=== PATIENT | male | born 1945 | race Caucasian/White ===

== ENCOUNTER 2020-12-11 11:10 | Outpatient (CLI) | payer MEDICARE, OTHER, SELFPAY ==
--- NOTE | 2020-12-11 11:18 | US_ITS ---
WS: [id number] TESTICULAR ULTRASOUND HISTORY: ELEVATED TESTOSTERONE LEVEL COMPARISON: None available. TECHNIQUE: Real-time and color Doppler imaging or utilized to perform a testicular ultrasound. Right testicle: 4.1 cm x 2.2 cm x 1.7 cm. Normal size and echogenicity. No mass or torsion. Normal color Doppler is present throughout. Systolic and diastolic velocities are both present. Small simple hydrocele. Right epididymis: Normal epididymis with no increased vascularity. Left testicle: 3.6 cm x 2.1 cm x 1.5 cm. Normal size and echogenicity. No mass or torsion. Normal color Doppler is present throughout. Systolic and diastolic velocities are both present. No significant hydrocele. Left epididymis: Normal epididymis. Small varicocele on the LEFT. US/US scrotum [id number] IMPRESSION: 1. No testicular mass or torsion. 2. Small simple RIGHT hydrocele. 3. Small varicocele on the LEFT.
== END 2020-12-11 11:11 | disposition home or self-care (01) ==
LOC: RAD 11:15
PROVIDERS: PCP Family Medicine; Visit Provider Family Medicine
DX: R79.89 Other specified abnormal findings of blood chemistry (principal); N43.3 Hydrocele, unspecified; I86.1 Scrotal varices
CPT/HCPCS: 76870

== ENCOUNTER → 2021-02-26 10:11 | Outpatient (BNVA) | payer MEDICARE, OTHER, SELFPAY | PROVIDERS: PCP Family Medicine; Referring Provider Family Medicine; Visit Provider Internal Medicine | DX: R79.89 Other specified abnormal findings of blood chemistry (principal); E23.7 Disorder of pituitary gland, unspecified; F03.90 Unspecified dementia, unspecified severity, without behavioral disturbance, psychotic disturbance, mood disturbance, and anxiety; D75.1 Secondary polycythemia | CPT/HCPCS: 99205 ==

== ENCOUNTER 2021-02-27 08:53 | Outpatient (CLI) | payer MEDICARE, OTHER, SELFPAY ==
[2021-02-27 10:19] LABS: Follicle Stimulating Hormone 5.7 mIU/mL (1.5-12.4); Prolactin 10.56 ng/mL (4.0-15.2); Prostate Specific Antigen Scr 0.53 ng/mL (0-4)
[2021-02-27 11:11] LABS: Testosterone Total 203.9 ng/dL (193-740)
[2021-03-02 16:03] LABS: Dehydroepiandrosterone Sulfate 62 mcg/dL (5-253)
[2021-03-02 23:37] LABS: Testosterone, Free 41.5 pg/mL (6.0-73.0)
== END 2021-02-27 08:54 | disposition home or self-care (01) ==
LOC: LAB 09:01
PROVIDERS: PCP Family Medicine; Visit Provider Internal Medicine
DX: R79.89 Other specified abnormal findings of blood chemistry (principal); E23.7 Disorder of pituitary gland, unspecified
CPT/HCPCS: 82627; 83001; 83002; 84146; 84402; 84403; G0103

== ENCOUNTER 2021-03-13 10:37 | Outpatient (CLI) | payer MEDICARE, OTHER, SELFPAY ==
[2021-03-13 12:10] LABS: 25 Hydroxy Vitamin D 26 ng/mL (30-100); Vitamin B12 686 pg/mL (232-1245)
[2021-03-13 12:14] LABS: Folate Level 6.5 ng/mL (4.5-32.2)
[2021-03-13 12:53] LABS: HIV 1 & 2 Antibody Non-Reactive (Non-Reactiv); HIV 1 & 2 Antigen Non-Reactive (Non-Reactiv)
== END 2021-03-13 10:38 | disposition home or self-care (01) ==
PROVIDERS: PCP Family Medicine; Visit Provider Internal Medicine
DX: F03.90 Unspecified dementia, unspecified severity, without behavioral disturbance, psychotic disturbance, mood disturbance, and anxiety (principal); F32.A Depression, unspecified; R79.89 Other specified abnormal findings of blood chemistry; E23.7 Disorder of pituitary gland, unspecified; D75.1 Secondary polycythemia; E55.9 Vitamin D deficiency, unspecified
CPT/HCPCS: 36415; 82306; 82607; 82746; 86592; 87806; 99214

== ENCOUNTER 2021-04-09 07:48 | Outpatient (CLI) | payer MEDICARE, OTHER, SELFPAY ==
--- NOTE | 2021-04-09 08:00 | MR_ITS ---
WS: [id number] MRI HEAD WITH CONTRAST TECHNIQUE: Sagittal T1, T2 axial, T2 axial FLAIR, axial susceptibility weighted imaging, axial diffus ion weighted images, and coronal T2 images were obtained. Pre and post-T1 axial and post T1 coronal i mages. ADC and FSPGR images. CLINICAL INFORMATION: F03.90 - Unspecified dementia without behavioral disturbance COMPARISON: None. FINDINGS: No evidence of restricted diffusion to suggest acute ischemia. Ventricular system and basal cisterns are patent. Mild small vessel changes. Moderate parenchymal volume loss. Normal posterior fossa. Norm al vascular flow voids at the skull base. No extra axial fluid collections. No evidence of mass or ma ss effect. Paranasal sinuses and mastoid air cells are well aerated. Small amount mucosal thickening in the ethmoid air cells. No hemosiderin on susceptibly weighted images. Normal optic chiasm and pituitary infundibulum. Moderate symmetric atrophy temporal lobes and hippoca mpal formations. No abnormal intraparenchymal enhancement. Normal visualized dural venous sinuses. No rmal posterior nasopharynx. MR/MR head wo/w con [id number] IMPRESSION: 1. No evidence of restricted diffusion to suggest acute ischemia. 2. Mild small vessel changes with moderate parenchymal volume loss. Atrophy mo re prominent in the parietal lobes. 3. Moderate symmetric atrophy temporal lobes and hippocampal formations. 4. No abnormal intracranial enhancement. 5. No hemosiderin on the susceptibility weighted images. 6. No other significant findings.
== END 2021-04-09 07:49 | disposition home or self-care (01) ==
LOC: RADSHAW 07:52
PROVIDERS: PCP Family Medicine; Visit Provider Internal Medicine
DX: F03.90 Unspecified dementia, unspecified severity, without behavioral disturbance, psychotic disturbance, mood disturbance, and anxiety (principal); G31.9 Degenerative disease of nervous system, unspecified
CPT/HCPCS: 70553; A9579

== ENCOUNTER → 2021-07-06 08:26 | Outpatient (BNVA) | payer MEDICARE, OTHER, SELFPAY | PROVIDERS: PCP Family Medicine; Visit Provider Internal Medicine | DX: F03.90 Unspecified dementia, unspecified severity, without behavioral disturbance, psychotic disturbance, mood disturbance, and anxiety (principal); E55.9 Vitamin D deficiency, unspecified; D75.1 Secondary polycythemia; G47.33 Obstructive sleep apnea (adult) (pediatric); E23.7 Disorder of pituitary gland, unspecified; R79.89 Other specified abnormal findings of blood chemistry; Z87.891 Personal history of nicotine dependence | CPT/HCPCS: 99214 ==

== ENCOUNTER 2021-07-07 09:57 | Outpatient (CLI) | payer MEDICARE, SELFPAY ==
[2021-07-07 11:05] LABS: 25 Hydroxy Vitamin D 27 ng/mL (30-100); Thyroid Stimulating Hormone 2.67 uIU/mL (0.27-4.20)
[2021-07-07 12:25] LABS: Free T4 Free Thyroxine 1.17 ng/dL (0.82-1.77)
== END 2021-07-07 09:58 | disposition home or self-care (01) ==
PROVIDERS: PCP Family Medicine; Visit Provider Internal Medicine
DX: D75.1 Secondary polycythemia (principal); E23.7 Disorder of pituitary gland, unspecified; E55.9 Vitamin D deficiency, unspecified; F03.90 Unspecified dementia, unspecified severity, without behavioral disturbance, psychotic disturbance, mood disturbance, and anxiety; G47.33 Obstructive sleep apnea (adult) (pediatric); R79.89 Other specified abnormal findings of blood chemistry
CPT/HCPCS: 36415; 82306; 84439; 84443

== ENCOUNTER → 2021-07-24 11:12 | Outpatient (BNVA) | payer MEDICARE, SELFPAY | PROVIDERS: PCP Family Medicine; Visit Provider Social Worker | DX: F33.2 Major depressive disorder, recurrent severe without psychotic features (principal) | CPT/HCPCS: 90834 ==

== ENCOUNTER → 2021-12-22 07:47 | Outpatient (BNVA) | payer MEDICARE, SELFPAY | PROVIDERS: PCP Family Medicine; Visit Provider Family Medicine | DX: E03.9 Hypothyroidism, unspecified (principal); D75.1 Secondary polycythemia; G89.29 Other chronic pain; M54.9 Dorsalgia, unspecified; R53.83 Other fatigue | CPT/HCPCS: 80053; 80061; 82607; 84443; 84550; 85025; 85651; 86140; 86618; 86666; 86757 ==

== ENCOUNTER 2022-03-08 06:47 | Outpatient (CLI) | payer MEDICARE, SELFPAY ==
--- NOTE | 2022-03-08 | ECG_ITS ---
[facility] Test Date: 2022-03-08 Pat Name: Troy Borja Department: Room: Gender: Male Supervisor Type Photography: : 1945 Requested By: Osman Stewart Order Number: [id number] Anisha MD: Mariama Petit M.D. Interpretive Statements NAME OF STUDY: EXERCISE SESTAMIBI STRESS TEST INDICATION: Dyspnea Baseline blood pressure of 137/96 mm Hg, heart rate of 77 beats per minute and oxygen saturation of 91%. EKG showed sinus rhythm with extreme right axis deviation with poor anterior R wave progression. The patient exercised for 5-minute 59 seconds on a standard Geovany protocol. Patient attained a maximum heart rate of 161 beats per minute(113% of the maximum predicted heart rate) with a blood pressure at the peak exercise of 171/77 mm Hg and oxygen saturation of 91%. The EKG at the peak exercise revealed sinus tachycardia with no significant ST-T wave changes. Patient did not have any chest pain or any significant arrhythmis with the exercise. During the recovery phase, there were no new changes. Isolated PVCs noted in recovery. Blood pressure at the end of the recovery phase was 148/89 mm Hg with a heart rate of 97 beats per minute and oxygen saturation of 94%. CONCLUSION: 1. Normal EKG response to treadmill exercise. 2. No exercise-induced chest pain or cardiac arrhythmia. 3. Good exercise tolerance, attained a maximum of 7 METs. 4. Baseline hypertension with normal response to exercise. 5. Perfusion scan will be documented separately. Electronically Signed On 03-08-2022 17:07:01 CDT by Mariama Petit M.D. [id number]
[2022-03-08 06:55] VITALS: BMI 30.5
--- NOTE | 2022-03-08 07:54 | NMCV_ITS ---
NM gordon perf SPECT r/s* [id number] Troy Borja Age: 77 Gender: M : 1945 Exam Date: 03/08/2022 07:58 Ordering Phys: Osman Reeves MD Technologist: DYLON Guadarrama Exam Location: [facility] Indications: CHEST PAIN STRESS TEST Please [facility] IMAGE PROTOCOL Rest/Stress 1 Exercise Day Radiopharmaceutical Dose (mCi) Administration Site Administered by Rest: Tc-99m 10.9 IV DYLON Deng Sestamibi Stress:Tc-99m 32.9 IV DYLON Deng Sestamibi Rest: 08-Mar-2022 60 Discovery 630 Stress: 08-Mar-2022 30 Discovery 630 Radiopharmaceutical was injected at 95 % maximum heart rate. Images obtained in supine and prone position. SPECT RESULTS Technical Quality: Excellent Raw Data Analysis: Normal Image Corrections: No attenuation or motion correction applied Summed Stress Score: 0 Summed Rest Score: 5 Summed Difference Score: 0 PERFUSION FINDINGS Small size perfusion abnormality of mild severity of apical septal, apical inferior and apical wall on rest images with improved tracer uptake on stress images. This is suggestive of attenuation artifact. FUNCTIONAL RESULTS (calculated via Gated SPECT) Stress Image LV EF (%): 66 Stress EDV (mL):74 TID: 0.7 Stress ESV (mL):25 FUNCTIONAL FINDINGS: The left ventricle is normal in size. Transient Ischemia Dilatation of 0.7. There is normal left ventricular systolic function. The left ventricular ejection fraction is normal with a value of 66%. There is normal left ventricular wall thickening. Normal end-diastolic and end-systolic volumes. IMPRESSIONS 1. Myocardial perfusion imaging is normal. Attenuation artifact noted in apical inferior and apical septal manley. 2. Overall left ventricular systolic function is normal without regional wall motion abnormalities, LVEF=66%. 3. EKG portion of the study will be reported separately. Mariama Petit MD (Electronically Signed) Final Date: 08 March 2022 16:55 S
[2022-03-08 08:55] VITALS: BP 148/89; PULSE 96
== END 2022-03-08 06:48 | disposition home or self-care (01) ==
PROVIDERS: PCP Family Medicine; Visit Provider Family Medicine
DX: R06.00 Dyspnea, unspecified (principal); R07.9 Chest pain, unspecified; I10 Essential (primary) hypertension
CPT/HCPCS: 78452; 93017; A9500

== ENCOUNTER → 2022-03-10 10:56 | Outpatient (BNVA) | payer MEDICARE, SELFPAY | PROVIDERS: PCP Family Medicine; Visit Provider Family Medicine | DX: R41.89 Other symptoms and signs involving cognitive functions and awareness (principal); E55.9 Vitamin D deficiency, unspecified | CPT/HCPCS: 82607; 82652 ==

== ENCOUNTER 2022-08-19 14:04 | Outpatient (CLI) | payer MEDICARE, SELFPAY ==
--- NOTE | 2022-08-19 14:28 | XR_ITS ---
WS: [id number] EXAMINATION: XR chest 2V* [id number] REASON FOR EXAM: cough COMPARISON: 2013 ORDER DATE: 08/19/2022 2:52 PM FINDINGS: The lungs are clear of infiltrate. There are scattered calcified granulomas. The cardiac and medias tinal outlines are unremarkable. There are no significant pleural effusions . No significant abnormal ities are noted in the spine or remainder of the bony thorax. XR/XR chest 2V* [id number] IMPRESSION: NO ACUTE PULMONARY CHANGE.
== END 2022-08-19 14:05 | disposition home or self-care (01) ==
PROVIDERS: PCP Family Medicine; Visit Provider Family Medicine
DX: R05.9 Cough, unspecified (principal); R06.02 Shortness of breath
CPT/HCPCS: 71046

== ENCOUNTER → 2022-09-16 15:05 | Outpatient (BNVA) | payer MEDICARE, SELFPAY | PROVIDERS: PCP Family Medicine; Visit Provider Family Medicine | DX: F03.90 Unspecified dementia, unspecified severity, without behavioral disturbance, psychotic disturbance, mood disturbance, and anxiety (principal); R53.83 Other fatigue | CPT/HCPCS: 80053; 84443; 85025; 85651; 86140 ==

== ENCOUNTER → 2022-09-30 14:01 | Outpatient (BNVA) | payer MEDICARE, SELFPAY | PROVIDERS: PCP Family Medicine; Visit Provider Family Medicine | DX: R63.4 Abnormal weight loss (principal) | CPT/HCPCS: 80048 ==

== ENCOUNTER 2023-04-28 07:56 | Outpatient (CLI) | payer MEDICARE, SELFPAY ==
--- NOTE | 2023-04-28 08:00 | XRR_ITS ---
PROCEDURE INFORMATION: Exam: XR Chest Exam date and time: 04/28/2023 8:13 AM Age: 78 years old Clinical indication: Condition or disease; Lung condition and disease; Pneumonia TECHNIQUE: Imaging protocol: Radiologic exam of the chest. Views: 2 views. COMPARISON: CR XR chest 2V* [id number] 08/19/2022 2:53 PM FINDINGS: Lungs: Calcified granuloma the right upper lobe. Pleural spaces: Unremarkable. No pleural effusion. No pneumothorax. Heart/Mediastinum: Unremarkable. No cardiomegaly. Bones/joints: Unremarkable. XR/XR chest 2V* [id number] IMPRESSION: No acute findings.
== END 2023-04-28 07:57 | disposition home or self-care (01) ==
LOC: RAD 07:57
PROVIDERS: PCP Family Medicine; Visit Provider Family Medicine
DX: J18.9 Pneumonia, unspecified organism (principal)
CPT/HCPCS: 71046

== ENCOUNTER → 2023-08-16 14:47 | Outpatient (BNVA) | payer MEDICARE, SELFPAY | PROVIDERS: PCP Family Medicine; Visit Provider Family Medicine | DX: E03.9 Hypothyroidism, unspecified (principal); F32.A Depression, unspecified; M54.9 Dorsalgia, unspecified; G89.29 Other chronic pain; R79.89 Other specified abnormal findings of blood chemistry; E11.9 Type 2 diabetes mellitus without complications | CPT/HCPCS: 80053; 80061; 84443; 85025 ==

== ENCOUNTER → 2024-01-12 08:43 | Outpatient (BNVA) | payer MEDICARE, SELFPAY | PROVIDERS: PCP Family Medicine; Visit Provider Family Medicine | DX: S61.019A Laceration without foreign body of unspecified thumb without damage to nail, initial encounter (principal); F32.A Depression, unspecified; D75.1 Secondary polycythemia; M54.9 Dorsalgia, unspecified; G89.29 Other chronic pain; X58.XXXA Exposure to other specified factors, initial encounter | CPT/HCPCS: 80053; 85025 ==

== ENCOUNTER → 2024-07-10 12:21 | Outpatient (BNVA) | payer MEDICARE, SELFPAY | PROVIDERS: PCP Family Medicine; Visit Provider Family Medicine | DX: F32.A Depression, unspecified (principal); E03.9 Hypothyroidism, unspecified; R06.02 Shortness of breath | CPT/HCPCS: 80053; 82607; 83880; 84443; 85025 ==

== ENCOUNTER 2024-07-12 09:38 | Outpatient (CLI) | payer MEDICARE, SELFPAY ==
--- NOTE | 2024-07-12 09:44 | XR_ITS ---
WS: [id number] XR chest 2V* [id number] REASON FOR EXAM: dyspnea FINDINGS: The chest is unchanged compared to the previous examination of 04/28/2023. Significant tortuosity of the thoracic aorta. Normal heart size. Calcified granulomas disease bilaterally. No acute pulmonary parenchymal or pleural abnormality. Moderate degenerative spondylosis in the mid and lower thoracic spine. XR/XR chest 2V* [id number] IMPRESSION: Stable chest without acute abnormality.
== END 2024-07-12 09:39 | disposition home or self-care (01) ==
PROVIDERS: PCP Family Medicine; Visit Provider Family Medicine
DX: R06.02 Shortness of breath (principal); R93.5 Abnormal findings on diagnostic imaging of other abdominal regions, including retroperitoneum; D71 Functional disorders of polymorphonuclear neutrophils; M47.894 Other spondylosis, thoracic region
CPT/HCPCS: 71046

== ENCOUNTER → 2025-02-26 13:07 | Outpatient (BNVA) | payer MEDICARE, SELFPAY | PROVIDERS: PCP Family Medicine; Visit Provider Family Medicine | DX: D75.1 Secondary polycythemia (principal); F03.90 Unspecified dementia, unspecified severity, without behavioral disturbance, psychotic disturbance, mood disturbance, and anxiety; F32.A Depression, unspecified; E03.9 Hypothyroidism, unspecified; M54.9 Dorsalgia, unspecified; G89.29 Other chronic pain | CPT/HCPCS: 80053; 84443; 85025 ==